=== PATIENT | female | born 1950 | race Caucasian/White ===

== ENCOUNTER → 2016-09-30 | Outpatient (CLI) | payer MEDICARE ==
--- NOTE | 2016-10-01 09:57 | MM ---
Reason for exam: screening (asymptomatic). Last mammogram was performed 1 year ago. History: Patient is postmenopausal. Benign stereotactic core biopsy of the left breast, February 02, 2003. Took estrogen for 3 years. Took progesterone for 3 years. Physical Findings: A clinical breast exam by your physician is recommended on an annual basis and results should be correlated with mammographic findings. MG 3D Screening Mammo W/Cad Bilateral CC and MLO view(s) were taken. Prior study comparison: October 03, 2015, right breast MG work up mamm w CAD RT. September 27, 2015, bilateral MG 3d screening mammo w/cad. The breast tissue is almost entirely fat. No significant changes when compared with prior studies. ASSESSMENT: Benign, BI-RAD 2 RECOMMENDATION: Routine screening mammogram of both breasts in 1 year.
== END | disposition home or self-care (01) ==
LOC: RADMAMWWP 07:15
PROVIDERS: ATTEND Family Medicine
DX: Z12.31 Encounter for screening mammogram for malignant neoplasm of breast (principal)
CPT/HCPCS: 77063; G0202

== ENCOUNTER → 2017-10-10 | Outpatient (CLI) | payer MEDICARE ==
--- NOTE | 2017-10-12 12:12 | MM ---
Reason for exam: screening (asymptomatic). Last mammogram was performed 1 year ago. History: Patient is postmenopausal. Benign stereotactic core biopsy of the left breast, February 02, 2003. Took estrogen for 3 years. Took progesterone for 3 years. Physical Findings: A clinical breast exam by your physician is recommended on an annual basis and results should be correlated with mammographic findings. MG 3D Screening Mammo W/Cad Bilateral CC and MLO view(s) were taken. Prior study comparison: September 30, 2016, bilateral MG 3d screening mammo w/cad. October 03, 2015, right breast MG work up mamm w CAD RT. The breast tissue is heterogeneously dense. This may lower the sensitivity of mammography. No suspicious abnormality. Left breast biopsy marker noted. No significant changes when compared with prior studies. ASSESSMENT: Negative, BI-RAD 1 RECOMMENDATION: Routine screening mammogram of both breasts in 1 year.
== END | disposition home or self-care (01) ==
LOC: RADMAMWWP 09:07
PROVIDERS: ATTEND Family Medicine
DX: Z12.31 Encounter for screening mammogram for malignant neoplasm of breast (principal)
CPT/HCPCS: 77063; 77067

== ENCOUNTER → 2018-06-15 | Outpatient (CLI) | payer MEDICARE ==
--- NOTE | 2018-06-15 20:31 | BD ---
EXAMINATION TYPE: Axial Bone Density DATE OF EXAM: 06/15/2018 COMPARISON: 05/22/2015 CLINICAL HISTORY: Height: 61.5 IN Weight: 215 LBS RISK FACTORS HISTORY OF: Family History of Osteoporosis: YES GRANDMOTHER Active: YES Diet low in dairy products/other sources of calcium: YES Postmenopausal woman: AGE 52 Take estrogen and/or progesterone medications: NOT NOW How long: AGE 38 - 39 MEDICATIONS: Thyroid Medications: YES Which medication: Levothyroxine How Lon + YEARS Additional Medications: CALCIUM, VIT D, LEVOTHYROXINE, BLOOD PRESSURE MEDS, CHOLESTEROL MEDS, DEPRESS ION MED EXAM MEASUREMENTS: Bone mineral densitometry was performed using the [employer]. Bone mineral density as measured about the Lumbar spine is: ----- L1-L4(G/cm2): 1.192 T Score Values are as follows: ----- L2: -0.2 ----- L3: 0.0 ----- L4: 1.5 ----- L1-L4: 0.1 Bone mineral density has: Decreased -3.8% since study of: 05/22/2015 Bone mineral density about the R hip (g/cm2): 0.721 Bone mineral density about the L hip (g/cm2): 0.754 T Score values are as follows: -----R Neck: -2.3 -----L Neck: -2.0 -----R Total: -1.4 -----L Total: -1.1 Bone mineral density has: Decreased -1.8% since study of: 05/22/2015 IMPRESSION: Osteopenia NOTE: T-SCORE=SD OF THE YOUNG ADULT MEAN.
== END | disposition home or self-care (01) ==
LOC: RADBDWWP 07:55
PROVIDERS: ATTEND Family Medicine
DX: M85.80 Other specified disorders of bone density and structure, unspecified site (principal)
CPT/HCPCS: 77080

== ENCOUNTER → 2018-11-23 | Outpatient (CLI) | payer MEDICARE ==
--- NOTE | 2018-11-24 09:49 | MM ---
Reason for exam: screening (asymptomatic). Last mammogram was performed 1 year and 1 month ago. History: Patient is postmenopausal. Benign stereotactic core biopsy of the left breast, February 02, 2003. Took estrogen for 3 years. Took progesterone for 3 years. Physical Findings: A clinical breast exam by your physician is recommended on an annual basis and results should be correlated with mammographic findings. MG 3D Screening Mammo W/Cad Bilateral CC and MLO view(s) were taken. Prior study comparison: October 10, 2017, bilateral MG 3d screening mammo w/cad. September 30, 2016, bilateral MG 3d screening mammo w/cad. There are scattered fibroglandular densities. Previous mammotome biopsy in the left breast. There is no discrete abnormality. ASSESSMENT: Benign, BI-RAD 2 RECOMMENDATION: Routine screening mammogram of both breasts in 1 year.
== END ==
LOC: RADMAMWWP 07:15
PROVIDERS: ATTEND Family Medicine
DX: Z12.31 Encounter for screening mammogram for malignant neoplasm of breast (principal)
CPT/HCPCS: 77063; 77067

== ENCOUNTER 2019-01-04 09:11 | Day surgery (SDC) | payer MEDICARE ==
[2018-12-30 11:08] VITALS: BMI 37.0
[~2019-01-04 09:11] MED LIST: LACTATED RINGERS 1,000 ML IV SCH
[2019-01-04 09:48] VITALS: RESP 16; TEMP 98.1
[2019-01-04] MEDS ORDERED: LIDOCAINE 1% 20 ML VIAL (10MG/ML) FOR IV START INTRADERMA ONE (10:00)
[2019-01-04] MEDS ORDERED: PROPOFOL 10 MG/ML 20 ML VIAL IV ONE (11:00)
[2019-01-04] MEDS ORDERED: LIDOCAINE 1% INJ 10MG/ML (20 ML MDV) ONE (11:00)
--- NOTE | 2019-01-04 11:36 | P.PCN ---
Date of Procedure: 01/04/19 Procedure(s) Performed: Procedure: Total colonoscopy. Postoperative diagnosis: Screening for neoplasia, patient has history of polyps. Postoperative diagnosis: Sigmoid diverticulosis with no evidence of acute diverticulitis, strictures, polyps or cancer. Preparation: HalfLytely prep. Sedation: Was provided by anesthesia. Brief clinical history: The patient is a 68-year-old female who is scheduled for this evaluation for screening for neoplasia age being her risk factor in addition to history of polyps. Her last exam was in 2013. The patient has no abdominal complaints, bleeding or anemia. Procedure: With the patient on her left lateral decubitus position and after informed consent and adequate sedation, the perianal area was inspected and it did not show any fissures or fistulas. There were no masses felt on digital rectal examination. The Olympus CFH 190L video colonoscope was then inserted in the rectum in the usual fashion and advanced to the cecum. There were several diverticular orifices seen scattered in the sigmoid with no evidence of acute diverticulitis or strictures. The mucosa appeared healthy. No polyps or tumors were seen. I retroflexed the endoscope in the rectum before the endoscope was withdrawn. The patient tolerated the procedure well. Plan: The patient was reassured. Discussed dietary measures. She will follow- up with you as planned and I recommended repeat exam in 5 years.
[2019-01-04 11:49] VITALS: BP 99/67; PULSE 73
== END 2019-01-04 12:26 | disposition home or self-care (01) ==
LOC: ORWHC2ENDO 09:11
DX: Z12.11 Encounter for screening for malignant neoplasm of colon (principal); K57.30 Diverticulosis of large intestine without perforation or abscess without bleeding; Z86.010 Personal history of colon polyps; I10 Essential (primary) hypertension; E78.5 Hyperlipidemia, unspecified; E07.9 Disorder of thyroid, unspecified; F39 Unspecified mood [affective] disorder; Z79.890 Hormone replacement therapy; Z79.899 Other long term (current) drug therapy; Z88.2 Allergy status to sulfonamides; Z88.8 Allergy status to other drugs, medicaments and biological substances
CPT/HCPCS: J2001; J2704; G0105

== ENCOUNTER → 2020-02-08 | Outpatient (CLI) | payer MEDICARE ==
--- NOTE | 2020-02-09 11:20 | MM ---
Reason for exam: screening (asymptomatic). Last mammogram was performed 1 year and 2 months ago. History: Patient is postmenopausal. Benign stereotactic core biopsy of the left breast, February 02, 2003. Took estrogen for 3 years. Took progesterone for 3 years. Physical Findings: A clinical breast exam by your physician is recommended on an annual basis and results should be correlated with mammographic findings. MG 3D Screening Mammo W/Cad Bilateral CC and MLO view(s) were taken. Prior study comparison: November 23, 2018, bilateral MG 3d screening mammo w/cad. October 10, 2017, bilateral MG 3d screening mammo w/cad. There are scattered fibroglandular densities. There is no discrete abnormality. No significant changes when compared with prior studies. ASSESSMENT: Negative, BI-RAD 1 RECOMMENDATION: Routine screening mammogram of both breasts in 1 year.
== END | disposition home or self-care (01) ==
LOC: RADMAMWWP 08:05
PROVIDERS: ATTEND Family Medicine
DX: Z12.31 Encounter for screening mammogram for malignant neoplasm of breast (principal)
CPT/HCPCS: 77063; 77067

== ENCOUNTER → 2020-10-19 | Outpatient (CLI) | payer MEDICARE ==
--- NOTE | 2020-10-19 12:59 | ECHOF ---
Referral Reason:R01.1 Cardiac Murmur MEASUREMENTS -------- HEIGHT: 157.5 cm WEIGHT: 99.8 kg BP: 129/78 RVIDd: 2.1 cm (< 3.3) IVSd: 1.1 cm (0.6 - 1.1) LVIDd: 3.5 cm (3.9 - 5.3) LVPWd: 1.1 cm (0.6 - 1.1) IVSs: 1.6 cm LVIDs: 2.1 cm LVPWs: 1.5 cm LA Diam: 3.5 cm (2.7 - 3.8) Ao Diam: 2.8 cm (2.0 - 3.7) AV Cusp: 1.3 cm (1.5 - 2.6) MV E Carson: 1.25 m/s MV DecT: 156 ms MV A Carson: 0.55 m/s MV E/A Ratio: 2.26 AV maxP.72 mmHg AV meanP.01 mmHg RAP: 5.00 mmHg RVSP: 30.35 mmHg FINDINGS -------- Sinus rhythm. This was a technically adequate study. The left ventricular size is normal. There is borderline concentric left ventricular hypertrophy. Overall left ventricular systolic function is normal with, an EF between 60 - 65 %. The right ventricle is normal in size. The global wall thickness of the right ventricle is moderate ly enlarged. The left atrium is normal in size. The right atrial size is normal. Interatrial and interventricular septum intact. There is mild aortic valve sclerosis. There is mild aortic stenosis present. Peak/mean gradient a cross the Aortic Valve is 34.72mmHg / 20.01mmHg. Normal appearing mitral valve. No mitral regurgitation. The tricuspid valve appears structurally normal. Mild tricuspid regurgitation present. Right vent ricular systolic pressure is normal at < 35 mmHg. The pulmonic valve was not well visualized. The aortic root size is normal. IVC Not well visulized. There is no pericardial effusion. CONCLUSIONS -------- 1. There is borderline concentric left ventricular hypertrophy. 2. Overall left ventricular systolic function is normal with, an EF between 60 - 65 %. 3. The global wall thickness of the right ventricle is moderately enlarged. 4. There is mild aortic valve sclerosis. 5. There is mild aortic stenosis present. 6. Peak/mean gradient across the Aortic Valve is 34.72mmHg / 20.01mmHg. 7. Normal appearing mitral valve. 8. Mild tricuspid regurgitation present. 9. There is no pericardial effusion. CIVIL DRAFTER: Tara Sandra RDCS
== END ==
LOC: RADECHMAIN 11:28
PROVIDERS: ATTEND Family Medicine
DX: I08.2 Rheumatic disorders of both aortic and tricuspid valves (principal)
CPT/HCPCS: 93306

== ENCOUNTER → 2021-03-26 | Outpatient (CLI) | payer MEDICARE ==
--- NOTE | 2021-03-27 10:23 | MM ---
Reason for exam: screening (asymptomatic). Last mammogram was performed 1 year and 2 months ago. History: Patient is postmenopausal. Benign stereotactic core biopsy of the left breast, February 02, 2003. Took estrogen for 3 years. Took progesterone for 3 years. Physical Findings: A clinical breast exam by your physician is recommended on an annual basis and results should be correlated with mammographic findings. MG 3D Screening Mammo W/Cad Bilateral CC and MLO view(s) were taken. Prior study comparison: February 08, 2020, bilateral MG 3d screening mammo w/cad. November 23, 2018, bilateral MG 3d screening mammo w/cad. There are scattered fibroglandular densities. Previous mammotome biopsy in the left breast. No significant changes when compared with prior studies. ASSESSMENT: Negative, BI-RAD 1 RECOMMENDATION: Routine screening mammogram of both breasts in 1 year.
== END | disposition home or self-care (01) ==
LOC: RADMAMWWP 08:10
PROVIDERS: ATTEND Family Medicine
DX: Z12.31 Encounter for screening mammogram for malignant neoplasm of breast (principal); Z78.0 Asymptomatic menopausal state
CPT/HCPCS: 77063; 77067

== ENCOUNTER → 2021-11-06 | Outpatient (CLI) | payer MEDICARE ==
--- NOTE | 2021-11-07 08:46 | XR ---
EXAMINATION TYPE: XR KUB DATE OF EXAM: 11/06/2021 Comparison: None Clinical History: 70-year-old female R10.9 Left flank pain Findings: A single mildly distended air-filled bowel loop left mid to lower abdomen with a caliber of 3.3 cm. S ome gassy colon is present on the right. No significant dilated bowel loops are seen. Small pelvic phlebolith, left more so than right. Advanced facet arthropathy lower lumbar spine. Impression: A single borderline distended small bowel loop in the left side of the abdomen is probably transient. Represent a regional ileus or enteritis. Overall nonobstructive bowel gas pattern. Small pelvic phle boliths are noted.
== END | disposition home or self-care (01) ==
LOC: RADXRMAIN 15:46
PROVIDERS: ATTEND Family Medicine
DX: I87.8 Other specified disorders of veins (principal); R93.5 Abnormal findings on diagnostic imaging of other abdominal regions, including retroperitoneum
CPT/HCPCS: 74018

== ENCOUNTER → 2021-11-26 | Outpatient (CLI) | payer MEDICARE ==
--- NOTE | 2021-11-26 16:20 | XR ---
EXAMINATION TYPE: XR ribs LT DATE OF EXAM: 11/26/2021 CLINICAL HISTORY: Pain, Fall Four views of the ribs fail demonstrate evidence for displaced rib fracture or secondary sign of rib fracture. Visualized lungs are clear. No evidence for pneumothorax. IMPRESSION: No displaced rib fractures seen. ICD 10 NO FRACTURE, INITIAL EVALUATION
== END | disposition home or self-care (01) ==
LOC: RADXRMAIN 15:53
PROVIDERS: ATTEND Family Medicine
DX: R07.81 Pleurodynia (principal)

== ENCOUNTER → 2022-02-24 | Outpatient (CLI) | payer MEDICARE ==
--- NOTE | 2022-02-24 13:51 | XR ---
EXAMINATION TYPE: XR shoulder complete LT DATE OF EXAM: 02/24/2022 CLINICAL HISTORY: pain COMPARISON: NONE TECHNIQUE: Three views of the left shoulder are obtained. FINDINGS: There is no acute fracture/dislocation evident. The acromioclavicular and glenohumeral jorge luis int spaces appear moderately narrowed. The visualized ribs are intact and unremarkable. IMPRESSION: 1. There is no acute fracture or dislocation. ICD 10 NO FRACTURE, INITIAL EVALUATION
== END | disposition home or self-care (01) ==
LOC: RADXRMAIN 13:15
PROVIDERS: ATTEND Family Medicine
DX: M25.512 Pain in left shoulder (principal)

== ENCOUNTER → 2022-04-18 | Outpatient (CLI) | payer MEDICARE ==
--- NOTE | 2022-04-25 18:10 | MM ---
Reason for Exam: Screening (asymptomatic). Last mammogram was performed 1 year(s) and 1 month(s) ago. Patient History: Menarche at age 11. First Full-Term at age 19. Postmenopausal. Estrogen for 3 years until age 50. Progesterone for 3 years until age 50. 02/02/2003, Benign Stereotactic Core Biopsy on the left side. Risk Values: Helen 5 year model risk: 1.9%. NCI Lifetime model risk: 4.6%. Prior Study Comparison: 11/23/2018 Bilateral Screening Mammogram, [facility]. 02/08/2020 Bilateral Screening Mammogram, [facility]. 03/26/2021 Bilateral Screening Mammogram, [facility]. Tissue Density: The breast tissue is almost entirely fat. Findings: Analyzed By CAD. There is no suspicious group of microcalcifications or new suspicious mass in either breast. Overall Assessment: Negative, BI-RAD 1 Management: Screening Mammogram of both breasts in 1 year. A clinical breast exam by your physician is recommended on an annual basis and results should be correlated with mammographic findings. Electronically signed and approved by: Rk Hubbard DO
== END | disposition home or self-care (01) ==
LOC: RADMAMWWP 13:56
PROVIDERS: ATTEND Family Medicine
DX: Z12.31 Encounter for screening mammogram for malignant neoplasm of breast (principal); Z78.0 Asymptomatic menopausal state
CPT/HCPCS: 77063; 77067

== ENCOUNTER → 2023-04-29 | Outpatient (CLI) | payer MEDICARE ==
--- NOTE | 2023-04-30 08:37 | MM ---
Reason for Exam: Screening (asymptomatic). Last screening mammogram was performed 12 month(s) ago. Patient History: Menarche at age 11. First Full-Term at age 19. Postmenopausal. Estrogen for 3 years until age 50. Progesterone for 3 years until age 50. 02/02/2003, Benign Stereotactic Core Biopsy on the left side. Risk Values: Helen 5 year model risk: 1.9%. NCI Lifetime model risk: 4.3%. Prior Study Comparison: 02/08/2020 Bilateral Screening Mammogram, [facility]. 03/26/2021 Bilateral Screening Mammogram, [facility]. 04/18/2022 Bilateral MG 3D screening mammo w/cad, [facility]. Tissue Density: The breast tissue is heterogeneously dense. This may lower the sensitivity of mammography. Findings: Analyzed By CAD. There is no suspicious group of microcalcifications or new suspicious mass in either breast. Overall Assessment: Benign, BI-RAD 2 Management: Screening Mammogram of both breasts in 1 year. . Patient should continue monthly self-breast exams. A clinical breast exam by your physician is recommended on an annual basis. This exam should not preclude additional follow-up of suspicious palpable abnormalities. Note on Helen scores and lifetime risk: 1. A Helen score greater than 3% is considered moderate risk. If this is the case, consider specialist referral to assess eligibility for a risk reducing agent. 2. If overall lifetime risk for the development of breast cancer is 20% or higher, the patient may qualify for future screening with alternating mammogram and breast MRI. Electronically signed and approved by: Christiano Mar M.D. Radiologis
== END | disposition home or self-care (01) ==
LOC: RADMAMWWP 07:31
PROVIDERS: ATTEND Family Medicine
DX: Z12.31 Encounter for screening mammogram for malignant neoplasm of breast (principal); Z78.0 Asymptomatic menopausal state
CPT/HCPCS: 77063; 77067

== ENCOUNTER → 2023-07-21 | Outpatient (CLI) | payer MEDICARE ==
--- NOTE | 2023-07-21 16:22 | BD ---
EXAMINATION TYPE: Axial Bone Density DATE OF EXAM: 07/21/2023 CLINICAL HISTORY: 72 years old Female. ICD-10 CODE: Z78.0 ASYMP PAO Height: 60.7in Weight: 228lb FRAX RISK QUESTIONS: Secondary Osteoporosis: RISK FACTORS HISTORY OF: Family History of Osteoporosis: yes Active: no Postmenopausal woman: yes Take estrogen and/or progesterone medications: yes, none current How long: about 1 year MEDICATIONS: Thyroid Medications: Which medication: Levothyroxine How Long: about 30 years Additional Medications: calcium with vitamin d Additional History: EXAM MEASUREMENTS: Bone mineral densitometry was performed using the [employer] System. Bone mineral density as measured about the Lumbar spine is: ----- L1-L4(G/cm2): 1.281 T Score Values are as follows: ----- L1: 0.9 ----- L2: -0.5 ----- L3: 0.6 ----- L4: 1.9 ----- L1-L4: 0.8 Z Score Values are as follows: ----- L1: 1.4 ----- L2: 0.1 ----- L3: 1.2 ----- L4: 2.5 ----- L1-L4: 1.4 Bone mineral density has: Increased 13.2% since study of: 04-10-2021 Bone mineral density about the R hip (g/cm2): 0.802 Bone mineral density about the L hip (g/cm2): 0.886 T Score values are as follows: -----R Neck: -2.8 -----L Neck: -2.3 -----R Total: -1.6 -----L Total: -1.0 Z Score values are as follows: -----R Neck: -1.1 -----L Neck: -1.7 -----R Total: -0.8 -----L Total: -0.1 Bone mineral density has: Increased 2.9% since study of: 04-10-2021 FRAX%s: The graph provided illustrates a 16.4% chance for a major osteoporotic fx and a 5.4% chance f or the hips probability for fx in 10 years time. IMPRESSION: Osteoporosis (T Score less than -2.5). There is increased fracture risk and therapy is usually indicated based on age. Re-Screen 1-2 years. NOTE: T-SCORE=SD OF THE YOUNG ADULT MEAN.
== END | disposition home or self-care (01) ==
LOC: RADBDWWP 11:15
PROVIDERS: ATTEND Family Medicine
DX: M81.0 Age-related osteoporosis without current pathological fracture (principal); Z78.0 Asymptomatic menopausal state
CPT/HCPCS: 77080

== ENCOUNTER → 2023-12-23 | Outpatient (CLI) | payer MEDICARE ==
--- NOTE | 2023-12-24 10:07 | CA ---
Transthoracic Echo Report Name: Bessie Kumar Age: 73 Gender: F : 1950 Exam Date: 12/23/2023 13:21 Exam Location: Mobile Echo Ht (in): 61 Wt (lb): 228 Ordering Physician: Keon Tovar DO Attending/Referring Phys: Keon Tovar DO [employer] Darby Hummel RDCS Procedure CPT: Indications: I35.0 Nonrheumatic aortic (valve) stenosis Cardiac Hx: Technical Quality: Fair Contrast 1: Total Dose (mL): Contrast 2: Total Dose (mL): MEASUREMENTS (Male / Female) Normal Values 2D ECHO LV Diastolic Diameter PLAX 2.8 cm 4.2 - 5.9 / 3.9 - 5.3 cm LV Systolic Diameter PLAX 1.5 cm IVS Diastolic Thickness 1.6 cm 0.6 - 1.0 / 0.6 - 0.9 cm LVPW Diastolic Thickness 1.1 cm 0.6 - 1.0 / 0.6 - 0.9 cm LV Relative Wall Thickness 1.0 LVOT Diameter 1.9 cm LA Volume 23.1 cm??? 18 - 58 / 22 - 52 cm??? LA Volume Index 10.6 cm???/m??? 16 - 28 cm???/m??? DOPPLER AV Peak Velocity 388.9 cm/s AV Peak Gradient 60.5 mmHg AV Mean Velocity 273.8 cm/s AV Mean Gradient 32.6 mmHg AV Velocity Time Integral 67.2 cm LVOT Peak Velocity 126.7 cm/s LVOT Peak Gradient 6.4 mmHg LVOT Velocity Time Integral 25.1 cm LVOT Stroke Volume 68.8 cm??? LVOT Stroke Volume Index 34.4 ml/m??? LVOT Cardiac Index 3010.0 cm???/min???m??? AV Area Cont Eq vti 1.0 cm??? AV Area Cont Eq pk 0.9 cm??? MV Area PHT 4.6 cm??? Mitral E Point Velocity 67.1 cm/s Mitral A Point Velocity 108.8 cm/s Mitral E to A Ratio 0.6 MV Deceleration Time 165.6 ms MV E' Velocity 5.1 cm/s Mitral E to MV E' Ratio 13.3 TR Peak Velocity 206.6 cm/s TR Peak Gradient 17.1 mmHg Right Ventricular Systolic Press 22.1 mmHg FINDINGS Left Ventricle Moderately increased left ventricular wall thickness. Left ventricular cavity size normal. Normal left ventricular systolic function with no obvious regional wall motion abnormalities. Left ventricular ejection fraction is estimated at 55-60 %. Mid cavitary gradient noted. Pg 33 mmHg. Right Ventricle Right ventricle not well visualized. Right Atrium Right atrium not well visualized. Left Atrium Normal left atrial size. Mitral Valve Structurally normal mitral valve. No mitral stenosis. Mild mitral annular calcification. Mild mitral regurgitation. Aortic Valve Moderateto severe aortic stenosis with a peak gradient of 61 mmHg and a mean gradient of 33 mmHg. Tricuspid Valve Structurally normal tricuspid valve. Mild tricuspid regurgitation. Pulmonic Valve Pulmonic valve not well visualized. Pericardium No pericardial effusion. Aorta Aortic root and proximal ascending aorta not well visualized. CONCLUSIONS 1. Normal ventricle size and systolic function with left ventricular hypertrophy 2. Moderate aortic stenosis with a mean gradient of 33 mmHg 3. Mild mitral and tricuspid regurgitation Previewed by: Dr. Maryjo Gauthier MD (Electronically Signed) Final Date: 24 Dec 2023 10:06
== END | disposition home or self-care (01) ==
LOC: RADECHMAIN 13:16
PROVIDERS: ATTEND Family Medicine
DX: I08.2 Rheumatic disorders of both aortic and tricuspid valves (principal)
CPT/HCPCS: 93306

== ENCOUNTER 2024-02-03 08:57 | Day surgery (SDC) | payer MEDICARE ==
[2024-01-29 15:07] VITALS: BMI 43.4
[~2024-02-03 08:57] MED LIST changes: -LACTATED RINGERS 1,000 ML IV SCH; +LIDOCAINE 1% (10MG/ML) FOR IV START INTRADERMA PRN
[2024-02-03] MEDS: IV FLUID CONTINUATION 1,000 ML IV ONE (09:41)
[2024-02-03 09:51] VITALS: TEMP 97.7
[2024-02-03 10:11] LABS: Glucose,Whole Blood 121 mg/dL (70-110)
[2024-02-03] MEDS: LACTATED RINGERS 1,000 ML IV SCH (10:23)
[2024-02-03] MEDS ORDERED: PROPOFOL 10 MG/ML 20 ML VIAL IV ONE (10:30)
--- NOTE | 2024-02-03 10:49 | P.PCN ---
Date of Procedure: 02/03/24 Procedure(s) Performed: BRIEF HISTORY: Patient is a 73-year-old pleasant white female scheduled for an elective colonoscopy as a part of screening for colon cancer and family history of colon cancer. Her mother was diagnosed with colon cancer at age 40. PROCEDURE PERFORMED: Colonoscopy biopsy. PREOPERATIVE DIAGNOSIS: Screening for colon cancer and family history of colon cancer. IV sedation per Anesthesia. PROCEDURE: After informed consent was obtained, the patient, was brought into the endoscopy unit. IV sedation was administered by Anesthesia under continuous monitoring. Digital rectal examination was normal. Initially the Olympus CF-160 flexible video colonoscope was then inserted in the rectum, gradually advanced into the cecum with moderate to severe difficulty. Careful examination was performed as the scope was gradually being withdrawn. Ileocecal valve and the appendiceal orifice were visualized and appeared normal. Prep was excellent. Mucosa of the cecum, had a 5 mm polyp that was removed by cold biopsy. Rest of the ascending colon, transverse colon, descending colon, sigmoid colon, and rectum appeared normal. Moderate sigmoid diverticulosis. Retroflexion was performed in the rectum and no lesions were seen. The patient tolerated the procedure well. IMPRESSION: 5 mm cecal polyp status post removal by cold biopsy Moderate sigmoid diverticulosis RECOMMENDATIONS: Findings of this examination were discussed with the patient as well as her family. She was advised to follow-up with the biopsy results. Recommended repeat colonoscopy in 5 years because of the family history of colon cancer..
[2024-02-03 11:17] VITALS: BP 100/58; PULSE 81; RESP 18
== END 2024-02-03 11:49 | disposition home or self-care (01) ==
LOC: ORWHC2ENDO 08:57
PROVIDERS: ATTEND Internal Medicine Gastroenterology
DX: Z12.11 Encounter for screening for malignant neoplasm of colon (principal); K57.30 Diverticulosis of large intestine without perforation or abscess without bleeding; K63.5 Polyp of colon; E07.9 Disorder of thyroid, unspecified; I10 Essential (primary) hypertension; E78.5 Hyperlipidemia, unspecified; Z88.2 Allergy status to sulfonamides; Z88.8 Allergy status to other drugs, medicaments and biological substances; Z79.84 Long term (current) use of oral hypoglycemic drugs; Z79.899 Other long term (current) drug therapy; Z90.49 Acquired absence of other specified parts of digestive tract; Z98.890 Other specified postprocedural states
CPT/HCPCS: 88305; 45380; J2704

== ENCOUNTER → 2024-06-15 | Outpatient (CLI) | payer MEDICARE ==
--- NOTE | 2024-06-20 13:37 | MM ---
Reason for Exam: Screening (asymptomatic). Last mammogram was performed 1 year(s) and 2 month(s) ago. Patient History: Menarche at age 11. First Full-Term at age 19. Postmenopausal. Estrogen for 3 years until age 50. Progesterone for 3 years until age 50. 02/02/2003, Benign Stereotactic Core Biopsy on the left side. Risk Values: Helen 5 year model risk: 1.9%. NCI Lifetime model risk: 4.0%. Prior Study Comparison: 03/26/2021 Bilateral Screening Mammogram, [facility]. 04/18/2022 Bilateral MG 3D screening mammo w/cad, [facility]. 04/29/2023 Bilateral MG 3D screening mammo w/cad, [facility]. Tissue Density: The breasts are heterogeneously dense, which may obscure small masses. Findings: Analyzed By CAD. There is no suspicious group of microcalcifications or new suspicious mass in either breast. Surgical clip in the left breast table. Benign appearing calcifications. Overall Assessment: Benign, BI-RAD 2 Management: Screening Mammogram of both breasts in 1 year. . Patient should continue monthly self-breast exams. A clinical breast exam by your physician is recommended on an annual basis. This exam should not preclude additional follow-up of suspicious palpable abnormalities. Note on Helen scores and lifetime risk: 1. A Helen score greater than 3% is considered moderate risk. If this is the case, consider specialist referral to assess eligibility for a risk reducing agent. 2. If overall lifetime risk for the development of breast cancer is 20% or higher, the patient may qualify for future screening with alternating mammogram and breast MRI. [facility], , 06/15/2024 8:00 AM. Electronically signed and approved by: Nicho Mock M.D. Radiologis
== END | disposition home or self-care (01) ==
LOC: RADMAMWWP 07:11
PROVIDERS: ATTEND Family Medicine
DX: Z12.31 Encounter for screening mammogram for malignant neoplasm of breast (principal); R92.333 Mammographic heterogeneous density, bilateral breasts; Z78.0 Asymptomatic menopausal state
CPT/HCPCS: 77063; 77067

== ENCOUNTER → 2025-01-17 | Outpatient (CLI) | payer MEDICARE ==
--- NOTE | 2025-01-18 07:14 | CA ---
Transthoracic Echo Report Name: Bessie Kumar Age: 74 Gender: F : 1950 Exam Date: 01/17/2025 12:55 Exam Location: [facility] Ht (in): 61 Wt (lb): 229 Ordering Physician: Keon Tovar DO Attending/Referring Phys: Polysomnographic Tech Tara Sandra RDCS Procedure CPT: Indications: I35.0 NONRHEUMATIC AORTIC STENOSIS Cardiac Hx: Technical Quality: Fair Contrast 1: Total Dose (mL): Contrast 2: Total Dose (mL): MEASUREMENTS (Male / Female) Normal Values 2D ECHO LVOT Diameter 2.3 cm LV Diastolic Volume MOD BP 84.5 cm??? 67 - 155 / 56 - 104 cm??? LV Systolic Volume MOD BP 25.7 cm??? 22 - 58 / 19 - 49 cm??? LV Ejection Fraction MOD BP 69.6 % >= 55 % LV Cardiac Index MOD BP 2433.7 cm???/min???m??? LV Diastolic Volume MOD 4C 83.8 cm??? LV Systolic Volume MOD 4C 32.0 cm??? LV Ejection Fraction MOD 4C 61.8 % LV Cardiac Index MOD 4C 2141.4 cm???/min???m??? LV Diastolic Length 4C 8.4 cm LV Systolic Length 4C 7.1 cm LV Diastolic Volume MOD 2C 83.1 cm??? LV Systolic Volume MOD 2C 21.0 cm??? LV Ejection Fraction MOD 2C 74.7 % LV Cardiac Index MOD 2C 2566.0 cm???/min???m??? LV Diastolic Length 2C 8.6 cm LV Systolic Length 2C 7.1 cm LA Volume 56.5 cm??? 18 - 58 / 22 - 52 cm??? LA Volume Index 26.0 cm???/m??? 16 - 28 cm???/m??? M-MODE LV Diastolic Diameter MM 3.6 cm 4.2 - 5.9 / 3.9 - 5.3 cm LV Systolic Diameter MM 2.2 cm LV Cardiac Index MM Teich 1571.3 cm???/min???m??? IVS Diastolic Thickness MM 1.4 cm 0.6 - 1.0 / 0.6 - 0.9 cm LVPW Diastolic Thickness MM 1.3 cm 0.6 - 1.0 / 0.6 - 0.9 cm LV Relative Wall Thickness MM 0.8 0.24 - 0.42 / 0.22 - 0.42 LV Mass Index MM 82.3 g/m??? 49 - 115 / 43 - 95 g/m??? Aortic Root Diameter MM 2.7 cm AV Cusp Separation MM 1.7 cm DOPPLER AV Peak Velocity 420.4 cm/s AV Peak Gradient 70.7 mmHg AV Mean Velocity 307.2 cm/s AV Mean Gradient 42.5 mmHg AV Velocity Time Integral 90.3 cm LVOT Peak Velocity 116.6 cm/s LVOT Peak Gradient 5.4 mmHg LVOT Velocity Time Integral 25.2 cm LVOT Stroke Volume 102.5 cm??? LVOT Stroke Volume Index 51.2 ml/m??? LVOT Cardiac Index 4239.7 cm???/min???m??? AV Area Cont Eq vti 1.1 cm??? AV Area Cont Eq pk 1.1 cm??? MV Area PHT 3.1 cm??? Mitral E Point Velocity 80.4 cm/s Mitral A Point Velocity 110.6 cm/s Mitral E to A Ratio 0.7 MV Deceleration Time 246.9 ms TR Peak Velocity 162.6 cm/s TR Peak Gradient 10.6 mmHg Right Ventricular Systolic Press 15.6 mmHg FINDINGS Left Ventricle Left ventricular ejection fraction is estimated at 60-65 %. Normal left ventricular diastolic filling pattern. Mildly increased left ventricular wall thickness. Right Ventricle Normal right ventricular size. Right ventricular systolic pressure within normal limits. Right Atrium Right atrium not well visualized. No right atrial thrombus or mass seen. Left Atrium Mildly increased left atrial volume. No left atrial thrombus or mass present. Mitral Valve Structurally normal mitral valve. No mitral stenosis, regurgitation or prolapse. Aortic Valve Aortic valve not well visualized. Aortic valve sclerosis. Severe aortic stenosis with a peak velocity of 4.2 m/s, peak gradient 71 mmHg, mean gradient 42 mmHg, and estimated aortic valve area of 1.1cm???. Tricuspid Valve Tricuspid valve not well visualized. Mild tricuspid regurgitation. Pulmonic Valve Pulmonic valve not well visualized. No pulmonic regurgitation. Pericardium No pericardial effusion. Echo free space anterior to the right ventricle likely represents a fat pad. Aorta Normal size aortic root and proximal ascending aorta. CONCLUSIONS Technically difficult study. Normal left ventricular size and systolic function Severe aortic stenosis with a mean gradient of 42 mmHg Mild tricuspid regurgitation with no evidence of pulmonary hypertension Previewed by: Dr. Maryjo Gauthier MD (Electronically Signed) Final Date: 18 January 2025 07:13
== END | disposition home or self-care (01) ==
LOC: RADECHMAIN 12:49
PROVIDERS: ATTEND Family Medicine
DX: I08.2 Rheumatic disorders of both aortic and tricuspid valves (principal); I35.0 Nonrheumatic aortic (valve) stenosis
CPT/HCPCS: 93306

== ENCOUNTER → 2025-01-19 | Outpatient (CLI) | payer MEDICARE ==
[2025-01-19 15:29] LABS: HCT 46.1 % (37.2-46.3); HGB 14.5 g/dL (12.0-15.0); MCH 28.5 pg (27.0-32.0); MCHC 31.5 g/dL (32.0-37.0); MCV 90.7 FL (80.0-97.0); Mean Platelet Volume 11.4 FL (9.5-12.2); NRBC Per 100 WBC 0 X 10*3/uL (0.00-0.01); Platelet Count 257 X 10*3/uL (140-440); RBC 5.08 X 10*6/uL (4.10-5.20); WBC 7.58 X 10*3/uL (4.50-10.00)
[2025-01-19 15:36] LABS: NT-Pro-B-Type Natriuretic Pept 83 pg/mL (0-450)
[2025-01-19 15:48] LABS: ALT 45 U/L (8-44); AST 43 U/L (13-35); Albumin 4.3 g/dL (3.8-4.9); Alkaline Phosphatase 70 U/L (41-126); BUN/Creat Ratio 23.43 Ratio (12.00-20.00); Blood Urea Nitrogen 16.4 mg/dL (9.0-27.0); Calcium 9.9 mg/dL (8.7-10.3); Carbon Dioxide 23.7 mmol/L (21.6-31.8); Chloride 99 mmol/L (96-109); Globulin 3.3 g/dL (1.6-3.3); Glucose 123 mg/dL (70-110); Potassium 4.4 mmol/L (3.5-5.5); Sodium 139 mmol/L (135-145); Total Bilirubin 0.5 mg/dL (0.3-1.2); Total Protein 7.6 g/dL (6.2-8.2)
== END | disposition home or self-care (01) ==
LOC: LABWHC1 09:52
PROVIDERS: ATTEND Student in an Organized Health Care Education/Training Program
DX: I25.10 Atherosclerotic heart disease of native coronary artery without angina pectoris (principal); I50.9 Heart failure, unspecified; I35.0 Nonrheumatic aortic (valve) stenosis; E11.9 Type 2 diabetes mellitus without complications; E03.9 Hypothyroidism, unspecified
CPT/HCPCS: 36415; 80053; 80061; 83036; 83880; 84443; 85027

== ENCOUNTER → 2025-02-22 | Outpatient (CLI) | payer MEDICARE ==
[2025-02-22 19:06] LABS: HCT 43.6 % (37.2-46.3); HGB 13.9 g/dL (12.0-15.0); MCH 28.7 pg (27.0-32.0); MCHC 31.9 g/dL (32.0-37.0); MCV 90.1 FL (80.0-97.0); NRBC Per 100 WBC 0 X 10*3/uL (0.00-0.01); Platelet Count 287 X 10*3/uL (140-440); RBC 4.84 X 10*6/uL (4.10-5.20); RDW 14.8 % (11.5-14.5); WBC 9.77 X 10*3/uL (4.50-10.00)
[2025-02-22 19:11] LABS: Anion Gap 12.30 mmol/L (4.00-12.00); Blood Urea Nitrogen 17.9 mg/dL (9.0-27.0); Carbon Dioxide 28.7 mmol/L (21.6-31.8); Chloride 98 mmol/L (96-109); Potassium 4.1 mmol/L (3.5-5.5); Sodium 139 mmol/L (135-145)
== END | disposition home or self-care (01) ==
LOC: LABPAT 13:38
PROVIDERS: ATTEND Student in an Organized Health Care Education/Training Program
DX: Z01.812 Encounter for preprocedural laboratory examination (principal); I35.0 Nonrheumatic aortic (valve) stenosis
CPT/HCPCS: 80051; 82565; 84520; 85027

== ENCOUNTER 2025-03-03 07:07 | Day surgery (SDC) | payer MEDICARE ==
[2025-03-01 10:13] VITALS: BMI 43.4
[~2025-03-03 07:07] MED LIST changes: +ALPRAZolam 0.25 MG TAB PO PRN; -LIDOCAINE 1% (10MG/ML) FOR IV START INTRADERMA PRN; +NITROGLYCERIN SL TABS 0.4 MG TAB SUBLINGUAL PRN
[2025-03-03] MEDS: ASPIRIN 325 MG TAB PO STA (07:28)
[2025-03-03] MEDS: SODIUM CHLORIDE 0.9% 1,000 ML in EMPTY BAG 1 BAG IV SCH (07:29)
[2025-03-03] MEDS: ALPRAZolam 0.5 MG TAB PO PRN (07:29)
[2025-03-03] MEDS: IV FLUID CONTINUATION 1,000 ML IV ONE (07:30)
[2025-03-03 07:35] VITALS: RESP 16; TEMP 98.2
[2025-03-03] MEDS: HEPARIN SODIUM,PORCINE (1 ML) 2,500 UNIT in SODIUM CHLORIDE 0.9% 250 ML IRRIGATION PRN (09:13)
[2025-03-03] MEDS: HEPARIN SODIUM,PORCINE 10,000 UNIT in SODIUM CHLORIDE 0.9% 1,000 ML IRRIGATION PRN (09:13)
[2025-03-03] MEDS: BENZOCAINE SPRAY 1 EACH MM ONE ×2 (09:13→09:32)
[2025-03-03] MEDS: MIDAZOLAM 2 MG/2 ML VIAL IVP ONE (09:27)
[2025-03-03] MEDS: fentaNYL (PF) 50 MCG/ML 2 ML AMP IVP ONE (09:27)
[2025-03-03] MEDS: LIDOCAINE 1% INJ 10MG/ML (20 ML MDV) SQ ONE (09:54)
[2025-03-03] MEDS: VERAPAMIL SYRINGE (5 MG/10 ML) INTRAARTER ONE (10:13)
[2025-03-03] MEDS: HEPARIN SODIUM 1,000 UN/ML (10ML VL) IVP ONE (10:16)
[2025-03-03 10:24] LABS: O2 Sat Blood Gas 76.4 %
[2025-03-03 10:25] LABS: O2 Sat Blood Gas 99.2 %
[2025-03-03 10:26] LABS: O2 Sat Blood Gas 76.1 %
[2025-03-03 10:27] LABS: O2 Sat Blood Gas 73.1 %
[2025-03-03] MEDS: IOPAMIDOL-370 100ML BTL INJ ONE (10:32)
[2025-03-03 13:08] VITALS: PULSE 85
[2025-03-03 14:27] VITALS: BP 96/68
--- NOTE | 2025-03-03 21:51 | P.TEE ---
Date of Procedure: 03/03/25 Description of Procedure(s): Procedure performed: 1. Transesophageal Echocardiogram with color flow doppler, pulsed wave doppler and continuous wave doppler, (CPT 88884, +[id number], [id number]) 2. Moderate conscious sedation. Sedation time 9 mins. (CPT 59279) Indications: Severe aortic stenosis Consent: I have discussed the risks, benefits and alternative therapies for the above-mentioned procedure. The patient has indicated understanding and acceptance of the risks of the procedure. Signed consent was obtained and was placed in the paper chart. Procedural Steps: Timeout was performed in usual fashion. Patient's heart rate, blood pressure, oxygen saturation and ECG were monitored. Benzocaine was sprayed liberally in the back of the throat. Bite block was placed between the jaw. 2 mg of Versed and 50 mcg of Fentanyl were administered intravenously. After achieving appropriate moderate conscious sedation, YAQUELIN probe was advanced without difficulty and without any immediate complications to the esophagus. YAQUELIN study was performed with color flow doppler, pulsed wave doppler and continuous wave doppler. The probe was then removed. Patient tolerated the procedure well. Patient was transferred to the post procedure area in stable and satisfactory condition. Throughout the procedure patient's heart rate, blood pressure, oxygen saturation and ECG were monitored. Total sedation time 9 mins. Complications: none FINDINGS Left Atrium: Moderate left atrial dilatation. No evidence of thrombus or mass Left Atrial Appendage: No evidence of thrombus or mass seen in MOMO Inter atrial septum: Intact. Lipomatous. No evidence of ASD or PFO by color Doppler. Left Ventricle: Normal global LV size and systolic function Right Atrium: Normal overall RA size Right Ventricle: Normal global RV size and systolic function Aortic Valve: Trileaflet aortic valve. Calcified and sclerotic, with restricted opening. SHELLY by planimetry 1.0 cm, could not obtain deep transgastric view for aortic Doppler gradients because of vital hernia. Mitral Valve: Struturally normal. Mild mitral regurgitation. Pulmonic Valve: Not well visualized. Tricuspid Valve: Structurally normal. Trace tricuspid regurgitation Ascending aorta, Aortic root and Aortic arch: Aortic root is measured at 23 mm. BSA 2.01 m, BMI 43. Indexed aortic root 11.5 mm/m. Mild intimal thickening. Descending aorta: Mild intimal thickening. No bulky atheroma or calcification seen CONCLUSION: Trileaflet, calcified, sclerotic aortic valve. SHELLY by planimetry 1.0 cm Aortic root is small only measured at 23 mm, indexed at 11.5 mm/m Aortic valve mean gradient by surface echo from 01/2025 was estimated at 48 mmHg. Aortic valve mean gradient from 12/2023 was at 31 mmHg Gelacio Townsend MD, RPVI, FACC Thank you for allowing [facility] to participate in this patient's care. Feel free to reach out in case of any followup questions.
--- NOTE | 2025-03-03 22:10 | P.CARDCATH ---
Date of Procedure: 03/03/25 Description of Procedure: DIAGNOSTIC CORONARY ANGIOGRAPHY, right heart catheterization and LEFT HEART CATH REPORT PROCEDURES PERFORMED: Left heart catheterization Right heart catheterization Selective coronary angiography Moderate conscious sedation 44 mins [Ultrasound assisted] Right radial access Ultrasound assisted right basilic vein access INDICATION: Severe aortic stenosis CONSENT: I have explained the procedural steps of above-mentioned procedures in layman's terms to the patient. I discussed the risks (including but not limited to stroke, emergent vascular or cardiac surgery or ), benefits and alternative therapies for the above-mentioned procedure. I discussed the risks of sedation/analgesia and blood product administration (if indicated). The patient has indicated understanding and acceptance of these risks. Conscious Sedation: Patient's ECG, heart rate, blood pressure, pulse oximetry were monitored throughout the duration of procedure under my direct supervision. [2] mg Versed and [50] mcg Fentanyl were used for induction of moderate conscious sedation. Total duration of moderate concious sedation 44 minutes. PROCEDURAL DETAILS: Patient was prepped and draped in sterile fashion. 1% lidocaine was infiltrated over the right radial artery. Right radial access was obtained via modified seldinger technique. [Ultrasound was used for radial access]. Right basilic vein access was obtained via modified centimeter technique using ultrasound. 6 [place] sheath was secured and flushed and right basilic vein. [place]-Jason catheter was advanced with the sheath under fluoroscopy guidance. Sequential pressures and samples were collected for SpO2 measurement from pulmonary wedge position, pulmonary artery, RV and RA. Thermodilution study was performed. The [place]-Jason catheter was removed and the sheath was flushed. Medications: 5mg of verapamil was administed in the radial sheet. 6000 Units of Heparin was administed once the catheter reached the aortic root Wires and Catheter used: J wire was advanced under fluroscopy to get to aortic root. 5 [place] R4 catheter was utilized to cross the aortic valve with help of the wire. The wire was removed catheter was flushed and LV pressures were obtained and pullback was performed across the aortic valve. 5 slovenian JL 3.5 diagnostic catheter was utilized to selectively engage the left coronary ostium. 5 [place]ar[place] JR4 diagnostic catheter could not engage the right coronary ostium. This was exchanged for a AR-2 catheter. This catheter was manipulated to selectively engage the right coronary ostium. Right coronary angiogram was performed. Angiographic images were reviewed in detail. Catheter and wire were removed. Radial sheet was flushed. The right radial sheath was removed and a TR band was placed. Patent hemostasis was achieved. The patient tolerated the procedure well. Patient was transported back to the post catheterization holding area in stable condition. TECHNICAL DETAILS Total contrast used: Isovue [60 ml] Complications: [none] Estimated Blood loss: less than 15 ml HEMODYNAMICS: Aortic Pressure: 109/62 mmHg. LV pressure: 166/9 mmHg. LVEDP 17 mmHg. There is a peak to peak gradient of 56 mmHg across the aortic valve and the mean gradient of 39 mmHg. Aortic valve area by Hakki equation 1 cm using Mtaias cardiac output, 0.96 cm using thermodilution cardiac output. Mean RA pressure 5 mmHg RV pressure 30/1 mmHg, RVEDP 5 mmHg PA pressure 30/10 mmHg, mean PA pressure 23 mmHg Mean wedge pressure 10 mmHg BSA 2.01, Hb 12.6, heart rate 92, RA sat 76, RV sat 73%, PA sat 76%, arterial sat 99% Matias cardiac output 6.78 L/min. Matias cardiac index 3.37 L/min/m Thermodilution cardiac output 6.53 L/min, thermodilution cardiac index 3.25 L/min/m SELECTIVE CORONARY ARTERIOGRAPHY: LEFT MAIN: The left main is short and large caliber vessel. It bifurcates into the LAD and circumflex. Left main appears angiographically normal. LEFT ANTERIOR DESCENDING CORONARY ARTERY: LAD is large caliber reaches up to the apex. LAD appears angiographically patent. Mid LAD gives rise to a medium chetna iber diagonal branch which appears graphically patent. LEFT CIRCUMFLEX CORONARY ARTERY: It is nondominant vessel. LCx is moderate caliber, appears angiographically patent. Proximal LCx gives rise to a medium caliber OM branch which appears angiographically patent. Mid LCx gives rise to small OM 2 which is patent. Distally LCx continues to become an OM 3 branch which appears angiographically patent. RIGHT CORONARY ARTERY: Dominant vessel. The right coronary artery is a large caliber vessel. It has mild mid irregularities. Distal LAD gives rise to PDA and PL branch which appears angiographically patent. IMPRESSION: Angiographically patent coronary arteries Elevated LVEDP Severe aortic stenosis, with mean gradient 39 mmHg, SHELLY 1 cm, indexed at 0.5 cm/m Normal right-sided pressures PLAN: 125 cc fluids for 4 hours Discharge home in 4 hours Follow-up in the office in 1-2 weeks for further discussion for aortic stenosis management Performing Physician Gelacio Townsend MD, FACC, RPVI Thank you for allowing [facility] to participate in this patient's care. Feel free to reach out in case of any followup questions.
== END 2025-03-03 14:12 | disposition home or self-care (01) ==
LOC: CATHCVL 07:07
PROVIDERS: ATTEND Student in an Organized Health Care Education/Training Program
DX: I35.0 Nonrheumatic aortic (valve) stenosis (principal); I08.3 Combined rheumatic disorders of mitral, aortic and tricuspid valves; I10 Essential (primary) hypertension; E11.9 Type 2 diabetes mellitus without complications; E78.2 Mixed hyperlipidemia; E03.9 Hypothyroidism, unspecified; I44.7 Left bundle-branch block, unspecified; M81.0 Age-related osteoporosis without current pathological fracture; E66.01 Morbid (severe) obesity due to excess calories; Z68.41 Body mass index [BMI] 40.0-44.9, adult; Z79.83 Long term (current) use of bisphosphonates; Z79.890 Hormone replacement therapy; Z79.899 Other long term (current) drug therapy; Z88.2 Allergy status to sulfonamides; Z88.8 Allergy status to other drugs, medicaments and biological substances; Z82.49 Family history of ischemic heart disease and other diseases of the circulatory system
CPT/HCPCS: 93312; 93320; 93325; 93460; 85018; 82810; C1769 ×2; C1894; C1751; J2250; J1644 ×3; J2003; J3010; Q9967